=== PATIENT | female | born 1970 | race African-American/Black ===

== ENCOUNTER 2017-06-26 09:57 | Emergency (ER) | payer OTHER | END 2017-06-26 12:25 | disposition home or self-care (01) | LOC: ER 09:57 | DX: J20.9 Acute bronchitis, unspecified (principal); I10 Essential (primary) hypertension | CPT/HCPCS: 71046; 99284 ==

== ENCOUNTER 2018-09-03 10:17 | Emergency (ER) | payer OTHER ==
[~2018-09-03] VITALS: Ht 170.2 cm; Wt 127.0 kg
[~2018-09-03 10:17] MED LIST: AZIT250T6 PO; BENZ100C PO; PRED50TA PO
[2018-09-03 10:35] VITALS: BP 154/90
[2018-09-03] MEDS ORDERED: AMOX875T PO (11:08)
--- NOTE | 2018-09-03 11:09 | PHYS DOC ---
Past Medical History Past Medical History: Hypertension Past Surgical History: Cervical Fusion, Hysterectomy, Tubal ligation, Other Additional Past Surgical Histo: Left foot,NECK Alcohol Use: None Drug Use: None Adult General Chief Complaint Chief Complaint: SORE THROAT HPI HPI Patient is a 48 year old female who presents with a sore throat 5 days. The patient states that it does hurt to swallow but she is able to handle her own secretions. She has been using kujx-oem-wexwbsa or sore throat spray for symptom relief with good result. She has been using nfoz-bdc-tjaolai fever reducers for pain and fever. She denies headache or nausea. She denies earaches. Review of Systems Review of Systems Constitutional: Denies fever or chills [] Eyes: Denies change in visual acuity, redness, or eye pain [] HENT: See history of present illness Respiratory: Denies cough or shortness of breath [] Cardiovascular: No additional information not addressed in HPI [] GI: Denies abdominal pain, nausea, vomiting, bloody stools or diarrhea [] : Denies dysuria or hematuria [] Musculoskeletal: Denies back pain or joint pain [] Integument: Denies rash or skin lesions [] Neurologic: Denies headache, focal weakness or sensory changes [] Endocrine: Denies polyuria or polydipsia [] All other systems were reviewed and found to be within normal limits, except as documented in this note. Allergies Allergies Allergies Coded Allergies Type Severity Reaction Last Updated Verified No Known Drug Allergies 07/11/15 No Physical Exam Physical Exam Constitutional: Well developed, well nourished, no acute distress, non-toxic appearance. [] HENT: Normocephalic, atraumatic, bilateral tympanic membranes normal, pharyngeal erythema with no oral exudates, nose normal. [] Eyes: PERRLA, EOMI, conjunctiva normal, no discharge. [] Neck: Normal range of motion, no tenderness, supple, no stridor. [] Cardiovascular:Heart rate regular rhythm, no murmur [] Lungs & Thorax: Bilateral breath sounds clear to auscultation [] Abdomen: Bowel sounds normal, soft, no tenderness, no masses, no pulsatile masses. [] Neurologic: Alert and oriented X 3, normal motor function, normal sensory function, no focal deficits noted. [] Psychologic: Affect normal, judgement normal, mood normal. [] Current Patient Data Vital Signs Vital Signs Date Time Temp Pulse Resp B/P (MAP) Pulse Ox O2 Delivery O2 Flow Rate FiO2 09/03/18 10:35 98.7 81 20 154/90 (111) 97 Room Air 98.7 EKG EKG [] Radiology/Procedures Radiology/Procedures [] Course & Med Decision Making Course & Med Decision Making Pertinent Labs and Imaging studies reviewed. (See chart for details) [] Dragon Disclaimer Dragon Disclaimer This electronic medical record was generated, in whole or in part, using a voice recognition dictation system. Departure Departure Impression: Primary Impression: Pharyngitis Disposition: HOME, SELF-CARE Condition: STABLE Referrals: TRICIA GARRIDO MD (PCP) Patient Instructions: Viral and Bacterial Pharyngitis Additional Instructions: Take the antibiotic as directed. Increase fluids and rest. You may use ibuprofen or Tylenol for pain. You may continue to use sore throat sprays or lozenges for comfort. Scripts Amoxicillin (AMOXICILLIN) 875 Mg Tablet 1 TAB PO BID for pharyngitis, #20 TAB Prov: GOSIA MENSAH APRN 09/03/18 GOSIA MENSAH APRN Sep 03, 2018 11:09
== END 2018-09-03 11:17 | disposition home or self-care (01) ==
LOC: ER 10:17
DX: J02.9 Acute pharyngitis, unspecified (principal); I10 Essential (primary) hypertension
CPT/HCPCS: 99283

== ENCOUNTER 2018-09-17 16:09 | Emergency (ER) | payer OTHER ==
[~2018-09-17] VITALS: Ht 170.2 cm; Wt 127.0 kg
[~2018-09-17 16:09] MED LIST changes: +AMOX875T PO
[2018-09-17 16:33] VITALS: BP 158/84
--- NOTE | 2018-09-17 16:41 | PHYS DOC ---
Past Medical History Past Medical History: Hypertension (MO TELLEZ APRN) Past Surgical History: Cervical Fusion, Hysterectomy, Tubal ligation, Other Additional Past Surgical Histo: Left foot,NECK (MO TELLEZ APRN) Alcohol Use: None Drug Use: None (MO TELLEZ APRN) Adult General Chief Complaint Chief Complaint: COUGH HPI HPI Patient is a 48 year old AA female who presents to the emergency Department today with complaints of worsening cough and fever today. Patient states she has had a cough for over 3 weeks, she was seen here on August 28, 2018 and was prescribed some amoxicillin. Patient states that the antibiotics did not help her to feel better. She reports nasal congestion, dry cough, sore throat, and swollen lymph nodes in her neck at this time. Patient denies any nausea, vomiting, diarrhea, abdominal pain, ear pain, chest pain, or difficulty breathing. Patient reports that her ribs hurt from coughing. She currently rates her pain as 7 out of 10 on the pain scale she denies any alleviating factors. SHe states that coughing makes her pain worse. (MO TELLEZ APRN) Review of Systems Review of Systems Constitutional: Reports fever today Eyes: Denies changes HENT: See history of present illness Respiratory: See history of present illness Cardiovascular: No additional information not addressed in HPI [] GI: Denies abdominal pain, nausea, vomiting, or diarrhea [] Musculoskeletal: Denies back pain or joint pain [] Integument: Denies rash or skin lesions [] Neurologic: Denies headache (MO TELLEZ APRN) Current Medications Current Medications Current Medications Medications (Trade) Dose Ordered Sig/Bhavya Start Time Stop Time Status Last Admin Dose Admin Ibuprofen (Motrin) 800 mg 1X ONCE 09/17/18 17:00 09/17/18 17:01 DC 09/17/18 17:12 800 MG (FORTINO WHEELER MD) Allergies Allergies Allergies Coded Allergies Type Severity Reaction Last Updated Verified No Known Drug Allergies 07/11/15 No (FORTINO WHEELER MD) Physical Exam Physical Exam Constitutional: Well developed, well nourished, no acute distress, non-toxic appearance. [] HENT: Normocephalic, atraumatic, bilateral external ears normal, bilateral TMs normal, mild erythema of posterior pharynx, oropharynx moist, no oral exudates, nose normal. [] Eyes: conjunctiva normal, no discharge. [] Neck: Normal range of motion, supple, no stridor. [] Cardiovascular:Heart rate regular rhythm, no murmur [] Lungs & Thorax: Bilateral breath sounds clear to auscultation [] Skin: Warm, dry, no erythema, no rash. [] Extremities: No cyanosis, no clubbing, ROM intact, no edema. [] Neurologic: Alert and oriented X 3, no focal deficits noted. [] Psychologic: Affect normal, judgement normal, mood normal. [] (MO TELLEZ APRN) Current Patient Data Vital Signs Vital Signs Date Time Temp Pulse Resp B/P (MAP) Pulse Ox O2 Delivery O2 Flow Rate FiO2 09/17/18 16:33 102.2 99 20 158/84 (108) 98 Room Air 102.2 (FORTINO WHEELER MD) Lab Values Laboratory Tests Test 09/17/18 16:30 09/17/18 17:10 Influenza Type A Antigen Negative (NEGATIVE) Influenza Type B Antigen Negative (NEGATIVE) Group A Streptococcus Rapid Negative (NEGATIVE) (FORTINO WHEELER MD) Lab Values Laboratory Tests Test 09/17/18 16:30 09/17/18 17:10 Influenza Type A Antigen Negative (NEGATIVE) Influenza Type B Antigen Negative (NEGATIVE) Group A Streptococcus Rapid Negative (NEGATIVE) (MO TELLEZ APRN) EKG EKG [] (MO TELLEZ APRN) Radiology/Procedures Radiology/Procedures Influenza testing negative, rapid strep negative[] (MO TELLEZ APRN) Course & Med Decision Making Course & Med Decision Making Pertinent Labs and Imaging studies reviewed. (See chart for details) [] (MO TELLEZ APRN) Course & Med Decision Making Staff Physician Addendum: I was working in the ER during the course of this patient's visit. I was available for consultation as needed, but I was not directly involved in the care of this patient. (FORTINO WHEELER MD) Dragon Disclaimer Dragon Disclaimer This electronic medical record was generated, in whole or in part, using a voice recognition dictation system. (BOGUSLAW,MO D INSTRUCTOR PAINTING) Departure Departure Impression: Primary Impression: URI with cough and congestion Disposition: HOME, SELF-CARE Condition: STABLE Referrals: TRICIA GARRIDO MD (PCP) Patient Instructions: Upper Respiratory Infection, Adult, Ehmg-sr-Ayst Additional Instructions: Fill prescription(s) and use as directed. Recommend use of a Cool mist humidifier in room at bedtime. Alternate Tylenol or ibuprofen as needed for pain /fever. Increase clear fluids. Avoid airway triggers such as smoke, fragrance, dust, and pollen. Follow-up with your primary care doctor symptoms persist, return to the ER if symptoms worsen. Scripts Fluticasone Propionate (Flonase Allergy Relief) 9.9 Ml [place].susp 2 SPRAYS NS DAILY for 30 Days, #1 BOTTLE 0 Refills Prov: MO TELLEZ [employer]INTING 09/17/18 Prednisone (PREDNISONE) 50 Mg Tablet 1 TAB PO DAILY, #5 TAB 0 Refills Prov: MO TELLEZ [employer]ING 09/17/18 Benzonatate (TESSALON PERLE) 100 Mg Capsule 100 MG PO TID PRN for COUGH for 7 Days, #21 CAP 0 Refills Prov: MO TELLEZ [employer]ING 09/17/18 MO TELLEZ [employer]INTING Sep 17, 2018 16:41 FORTINO WHEELER MD Sep 19, 2018 06:17
[2018-09-17] MEDS ORDERED: IBUPROFEN 400 MG TABLET. PO ONE (17:00)
[2018-09-17 17:14] LABS: INFLUENZA A PATIENT NEGATIVE (NEGATIVE); INFLUENZA B PATIENT NEGATIVE (NEGATIVE)
[2018-09-17] MEDS ORDERED: PRED50TA PO (18:01)
[2018-09-17] MEDS ORDERED: FLUT9.9S NS (18:01)
[2018-09-17] MEDS ORDERED: BENZ100C PO (18:01)
== END 2018-09-17 18:17 | disposition home or self-care (01) ==
LOC: ER 16:09
DX: J06.9 Acute upper respiratory infection, unspecified (principal); I10 Essential (primary) hypertension
CPT/HCPCS: 87070; 87804; 87880; 99283

== ENCOUNTER 2019-06-24 09:50 | Emergency (ER) | payer OTHER ==
[~2019-06-24] VITALS: Ht 172.7 cm; Wt 127.0 kg
[~2019-06-24 09:50] MED LIST changes: +FLUT9.9S NS
[2019-06-24 10:25] VITALS: BP 137/74
[2019-06-24] MEDS ORDERED: BENZ100C PO (10:33)
[2019-06-24] MEDS ORDERED: METH4TAB2 PO (10:33)
--- NOTE | 2019-06-24 10:34 | PHYS DOC ---
Past Medical History Past Medical History: Hypertension Past Surgical History: Cervical Fusion, Hysterectomy, Tubal ligation, Other Additional Past Surgical Histo: Left foot,NECK Alcohol Use: None Drug Use: None Adult General Chief Complaint Chief Complaint: COUGH HPI HPI Patient is a 49 year old female who presents with cough this been ongoing for 4 months. The patient states the cough has been getting worse over last cold months. The only medicine she takes is losartan and metformin. The patient states that she has been having a little bit of a runny nose and the cough is worse in the morning. She states she's been using [id number] cough drops. Review of Systems Review of Systems Constitutional: Denies fever or chills [] Eyes: Denies change in visual acuity, redness, or eye pain [] HENT: Reports runny nose. Respiratory: Reports cough but denies shortness of breath [] Cardiovascular: No additional information not addressed in HPI [] GI: Denies abdominal pain, nausea, vomiting, bloody stools or diarrhea [] : Denies dysuria or hematuria [] Musculoskeletal: Denies back pain or joint pain [] Integument: Denies rash or skin lesions [] Neurologic: Denies headache, focal weakness or sensory changes [] Endocrine: Denies polyuria or polydipsia [] Complete systems were reviewed and found to be within normal limits, except as documented in this note. Allergies Allergies Allergies Coded Allergies Type Severity Reaction Last Updated Verified No Known Drug Allergies 07/11/15 No Physical Exam Physical Exam Constitutional: Well developed, well nourished, no acute distress, non-toxic appearance. [] HENT: Normocephalic, atraumatic, bilateral external ears normal, oropharynx moist, no oral exudates, nose normal. [] Eyes: PERRLA, EOMI, conjunctiva normal, no discharge. [] Neck: Normal range of motion, no tenderness, supple, no stridor. [] Cardiovascular:Heart rate regular rhythm, no murmur [] Lungs & Thorax: Bilateral breath sounds clear to auscultation [] Skin: Warm, dry, no erythema, no rash. [] Neurologic: Alert and oriented X 3, normal motor function, normal sensory function, no focal deficits noted. [] Psychologic: Affect normal, judgement normal, mood normal. [] Current Patient Data Vital Signs Vital Signs Date Time Temp Pulse Resp B/P (MAP) Pulse Ox O2 Delivery O2 Flow Rate FiO2 06/24/19 10:25 98.8 82 18 137/74 (95) 97 Room Air 98.8 EKG EKG [] Radiology/Procedures Radiology/Procedures [] Course & Med Decision Making Course & Med Decision Making Pertinent Labs and Imaging studies reviewed. (See chart for details) Discussed with patient that I am not 100% sure of cause of this chronic cough. I encouraged her to visit her primary care provider Dr. Nuno. I suspect it could be caused from post-nasal drip. I asked the patient to trial taking Zyrtec to s ee if improves. I also will write for Tessalon Perles, and will write for a Medrol dose pack. Dragon Disclaimer Dragon Disclaimer This electronic medical record was generated, in whole or in part, using a voice recognition dictation system. Departure Departure Impression: Primary Impression: Cough present for greater than 3 weeks Disposition: 01 HOME, SELF-CARE Condition: STABLE Referrals: AMADEO NUNO MD (PCP) Patient Instructions: Cough, Adult Additional Instructions: Thank you for visiting [facility]. We appreciate you trusting us with your care. If any additional problems come up don't hesitate to return to visit us. Please follow up with your primary care provider so they can plan additional care if needed and know about the problem that you had. If symptoms worsen come back to the Emergency Department. Any concerning symptoms that start such as chest pain, shortness of air, weakness or numbness on one side of the body, running high fevers or any other concerning symptoms return to the ER. Please fill your medications at any pharmacy and follow the prescription instructions. As we discussed please get Zyrtec and take per label instructions. Scripts Benzonatate (TESSALON PERLE) 100 Mg Capsule 100 MG PO TID PRN for COUGH, #21 CAP Prov: HERMILA LIN APRN 06/24/19 Methylprednisolone (MEDROL) 4 Mg Tab.ds.pk 1 PKG PO UD, #1 PKG Prov: HERMILA LIN APRN 06/24/19 HERMILA ILN APRN Jun 24, 2019 10:34
== END 2019-06-24 10:51 | disposition home or self-care (01) ==
LOC: ER 09:50
DX: R05 Cough (principal); R09.89 Other specified symptoms and signs involving the circulatory and respiratory systems; I10 Essential (primary) hypertension; Z90.710 Acquired absence of both cervix and uterus; Z98.51 Tubal ligation status; Z98.890 Other specified postprocedural states
CPT/HCPCS: 99283

== ENCOUNTER 2020-02-22 17:39 | Emergency (ER) | payer OTHER ==
[~2020-02-22] VITALS: Ht 170.2 cm; Wt 128.0 kg
[~2020-02-22 17:39] MED LIST changes: +METH4TAB2 PO
[2020-02-22] MEDS ORDERED: IV NORMAL SALINE 1000ML BAG 1,000 ML IV ONE (18:15)
[2020-02-22] MEDS ORDERED: AZIT250T PO (18:25)
--- NOTE | 2020-02-22 18:30 | PHYS DOC ---
Past Medical History Past Medical History: Hypertension Past Surgical History: Cervical Fusion, Hysterectomy, Tubal ligation, Other Additional Past Surgical Histo: Left foot,NECK Smoking Status: Never Smoker Alcohol Use: None Drug Use: None General Adult EDM: Chief Complaint: NAUSEA/VOMITING/DIARRHA HPI: HPI: Patient is a 50 year old female past medical history hypertension presents with a chief complaint of cough without sputum production sinus pressure fever up to 103 and diarrhea x3 days. Patient denies any associated chest pain or shortness of breath. Last fever was 103 this a.m. Patient states she last took Tylenol at 1100 hrs. Patient states she has some abdominal discomfort when she coughs. Patient states she has also had diarrhea but denies any blood in stool. Patient also complains of taste and smell abnormalities. Review of Systems: Review of Systems: Constitutional: Denies fever or chills. [] Eyes: Denies change in visual acuity. [] HENT: Denies shortness of breath. [Positive cough without sputum production] Cardiovascular: Denies chest pain or edema. [] GI: Denies nausea, vomiting, bloody stools . [Positive diarrhea positive abdominal pain] : Denies dysuria. [] Musculoskeletal: Denies back pain or joint pain. [] Integument: Denies rash. [] Neurologic: Denies headache, focal weakness or sensory changes. [] Endocrine: Denies polyuria or polydipsia. [] Lymphatic: Denies swollen glands. [] Psychiatric: Denies depression or anxiety. [] Heart Score: Risk Factors: Risk Factors: DM, Current or recent (<one month) smoker, HTN, HLP, family history of CAD, obesity. Risk Scores: Score 0 - 3: 2.5% MACE over next 6 weeks - Discharge Home Score 4 - 6: 20.3% MACE over next 6 weeks - Admit for Clinical Observation Score 7 - 10: 72.7% MACE over next 6 weeks - Early Invasive Strategies Current Medications: Current Medications Medications (Trade) Dose Ordered Sig/Bhavya Start Time Stop Time Status Last Admin Dose Admin Acetaminophen (Tylenol) 650 mg 1X ONCE 02/22/20 19:00 02/22/20 19:01 Sodium Chloride 1,000 ml @ 1,000 mls/hr 1X ONCE 02/22/20 18:15 02/22/20 19:14 Allergies: Allergies: Allergies Coded Allergies Type Severity Reaction Last Updated Verified No Known Drug Allergies 07/11/15 No Physical Exam: PE: Constitutional: Well developed, well nourished, no acute distress, non-toxic appearance. [] HENT: Normocephalic, atraumatic, bilateral external ears normal, oropharynx moist, no oral exudates, nose normal. [] Eyes: PERRLA, EOMI, conjunctiva normal, no discharge. [] Neck: Normal range of motion, no tenderness, supple, no stridor. [] Cardiovascular: Tachycardia Lungs & Thorax: Bilateral breath sounds clear to auscultation [] Abdomen: Bowel sounds normal, soft, no tenderness, no masses, no pulsatile masses. [] Skin: Warm, dry, no erythema, no rash. [] Back: No tenderness, no CVA tenderness. [] Extremities: No tenderness, no cyanosis, no clubbing, ROM intact, no edema. [] Neurologic: Alert and oriented X 3, normal motor function, normal sensory function, no focal deficits noted. [] Psychologic: Affect normal, judgement normal, mood normal. [] EKG: EKG: EKG performed at 1804 heart rate [address] elevation no ST depression no acute OR [] Radiology/Procedures: Radiology/Procedures: [] Impression: Findings: Patchy left basilar opacity. No pleural effusion. No pneumothorax. Prior granulomatous disease within the chest. Postop changes lower cervical spine. Impression: 1. Patchy left basilar opacity, concerning for pneumonia. Recommend follow-up to ensure resolution. Course & Med Decision Making: Course & Med Decision Making Pertinent Labs and Imaging studies reviewed. (See chart for details) [] Patient was evaluated initial work-up to include CBC CMP lipase troponin EKG chest x-ray and a COVID. Initial treatment included Tylenol and IV fluids. Treated with rocephin zithromax and potassium. All results reviewed with patient. Vitals at 2145-- Heart rate 98bmp O2 sat 95% on room air. Patient provided with work note. Galileo Disclaimer: Galileo Disclaimer: This electronic medical record was generated, in whole or in part, using a voice recognition dictation system. Departure Departure Impression: Primary Impression: Person under investigation for COVID-19 Additional Impressions: Fever URI with cough and congestion Hypokalemia Disposition: 01 HOME, SELF-CARE Condition: STABLE Patient Instructions: Hypokalemia, Pneumonia, Adult, Upper Respiratory Infection, Adult Scripts Potassium Chloride (POTASSIUM CHLORIDE ) 20 Meq Tablet.er 20 MEQ PO DAILY for SUPPLEMENT for 7 Days, #7 TAB.SR Prov: LAI BRANNON DO 02/22/20 Azithromycin (ZITHROMAX) 250 Mg Tablet 1 PKG PO UD, #6 TAB Prov: LAI BRANNON DO 02/22/20 Justicifation of Admission Dx: Justifications for Admission: Justification of Admission Dx: N/A LAI BRANNON DO Feb 22, 2020 18:30
--- NOTE | 2020-02-22 18:53 | RAD ---
CHEST AP ONLY History: Reason: cough / Spl. Instructions: / History: Comparison: June 26, 2017 Findings: Patchy left basilar opacity. No pleural effusion. No pneumothorax. Prior granulomatous disease within the chest. Postop changes lower cervical spine. Impression: 1. Patchy left basilar opacity, concerning for pneumonia. Recommend follow-up to ensure resolution. Electronically signed by: Jonnathan Aguilar DO (02/22/2020 6:50 PM) [facility]
[2020-02-22] MEDS ORDERED: ACETAMINOPHEN 325 MG TABLET. PO ONE (19:00)
[2020-02-22] MEDS ORDERED: cefTRIAXone IV Push 1 GM VIAL. IVP ONE (19:30)
[2020-02-22 20:06] LABS: BASO % 1 % (0-3); EOS % 0 % (0-3); HEMATOCRIT 36.7 % (36.0-47.0); HEMOGLOBIN 12.4 g/dL (12.0-15.5); LYMPH % 23 % (24-48); MEAN CORPUSCULAR HEMOGLOBIN 30 pg (25-35); MEAN CORPUSCULAR HGB CONC 34 g/dL (31-37); MEAN CORPUSCULAR VOLUME 88 fL (79-100); MONO # 0.3 x10^3/uL (0.0-1.1); MONO % 7 % (0-9); NEUT # 2.9 x10^3/uL (1.8-7.7); NEUT % 69 % (31-73); PLATELET COUNT 164 x10^3/uL (140-400); RED BLOOD COUNT 4.17 x10^6/uL (3.50-5.40); WHITE BLOOD COUNT 4.3 x10^3/uL (4.0-11.0)
[2020-02-22 21:26] VITALS: BP 169/99
[2020-02-22 21:47] LABS: ALBUMIN/GLOBULIN RATIO 0.8 (1.0-1.7); CALCIUM 7.7 mg/dL (8.5-10.1); CREATININE 0.9 mg/dL (0.6-1.0); GFR 80.2; TOTAL BILIRUBIN 0.6 mg/dL (0.2-1.0); TOTAL PROTEIN 6.9 g/dL (6.4-8.2)
[2020-02-22] MEDS ORDERED: POTA20TA4 PO (21:51)
[2020-02-22] MEDS ORDERED: POTASSIUM CHLORIDE 20 MEQ TABLET.ER. PO ONE (22:00)
--- NOTE | 2020-02-23 10:19 | EKG ---
[facility] [address] [place] [address] Test Date: 2020-02-22 Test Time: 18:04:25 Pat Name: CLARE CHAVARRIA Department: Room: Gender: F Buncher Hand: : 1970 Requested By: LAI BRANNON Order Number: [id number] Reading MD: Measurements Intervals [place] Rate: 115 P: 32 [place]: 120 QRS: -6 QRSD: 94 T: 5 QT: 318 QTc: 442 Interpretive Statements SINUS TACHYCARDIA LEFT ATRIAL ABNORMALITY LEFTWARD AXIS ABNORMAL ECG RI6.02 No previous ECG available for comparison
--- NOTE | 2020-02-26 08:56 | EKG ---
[facility] [address] [place] [address] Test Date: 2020-02-22 Test Time: 18:04:25 Pat Name: CLARE CHAVARRIA Department: Room: Gender: F Education Rep: : 1970 Requested By: LAI BRANNON Order Number: [id number] Reading MD: Measurements Intervals [place] Rate: 115 P: 32 [place]: 120 QRS: -6 QRSD: 94 T: 5 QT: 318 QTc: 442 Interpretive Statements SINUS TACHYCARDIA LEFT ATRIAL ABNORMALITY LEFTWARD AXIS ABNORMAL ECG RI6.02 No previous ECG available for comparison MTDD
== END 2020-02-22 22:00 | disposition home or self-care (01) ==
LOC: ER 17:39
DX: U07.1 COVID-19 (principal); J06.9 Acute upper respiratory infection, unspecified; R09.81 Nasal congestion; R05 Cough; R50.9 Fever, unspecified; E87.6 Hypokalemia; I10 Essential (primary) hypertension; Z90.710 Acquired absence of both cervix and uterus; Z98.51 Tubal ligation status; Z98.890 Other specified postprocedural states
CPT/HCPCS: 36415; 71045; 80053; 83690; 84484; 85025; 93005; 96361; 96374; 99285; J0696; J7030; U0003

== ENCOUNTER 2020-06-10 16:12 | Emergency (ER) | payer OTHER ==
[~2020-06-10] VITALS: Ht 167.6 cm; Wt 138.6 kg
[~2020-06-10 16:12] MED LIST changes: +AZIT250T PO; +POTA20TA4 PO
[2020-06-10 17:16] VITALS: BP 184/95
[2020-06-10] MEDS ORDERED: NAPROXEN 500 MG TABLET PO STA (17:22)
[2020-06-10] MEDS ORDERED: HYDROcodone/APAP 5/325MG 1 TAB TABLET PO ONE (17:30)
[2020-06-10] MEDS ORDERED: predniSONE 10 MG TABLET PO ONE (17:30)
[2020-06-10] MEDS ORDERED: CYCLOBENZAPRINE 10 MG TABLET. PO ONE (17:30)
--- NOTE | 2020-06-10 17:44 | RAD ---
Right shoulder 3 views. HISTORY: Pain right shoulder 3 views were taken of the right shoulder. There is not evidence of a fracture or dislocation or acute osseous abnormality. IMPRESSION: 1. No fracture or dislocation or acute osseous abnormality in the right shoulder. Electronically signed by: Berto Alcala MD (06/10/2020 5:42 PM) [id number]
[2020-06-10] MEDS ORDERED: METH4TAB2 PO (18:07)
[2020-06-10] MEDS ORDERED: HYDR-3164 PO (18:07)
[2020-06-10] MEDS ORDERED: GABA-585 PO (18:07)
[2020-06-10] MEDS ORDERED: CYCL10TA2 PO (18:07)
--- NOTE | 2020-06-10 18:07 | PHYS DOC ---
Past Medical History Past Medical History: Hypertension Past Surgical History: Cervical Fusion, Hysterectomy, Tubal ligation, Other Additional Past Surgical Histo: Left foot,NECK Smoking Status: Never Smoker Alcohol Use: None Drug Use: None General Adult EDM: Chief Complaint: SHOUDLER HPI: HPI: Patient is a 50 year old female with history of hypertension who presents to the ED today complaining of mild intermittent right shoulder pain specifically on the posterior aspect of the shoulder that began 5 days ago. Patient states she thought she slept wrong but the pain seems to keep going. She denies anything specifically exacerbating or relieving the pain. She describes the pain as sharp. She states she has tried [id number] pain patches as well as NSAIDs with no relief. Review of Systems: Review of Systems: Constitutional: Denies fever or chills. [] Respiratory: Denies cough or shortness of breath. [] Cardiovascular: Denies chest pain or edema. [] : Denies dysuria. [] Musculoskeletal: Reports right shoulder pain Integument: Denies rash. [] Neurologic: Denies headache, focal weakness or sensory changes. [] Psychiatric: Denies depression or anxiety. [] Heart Score: Risk Factors: Risk Factors: DM, Current or recent (<one month) smoker, HTN, HLP, family history of CAD, obesity. Risk Scores: Score 0 - 3: 2.5% MACE over next 6 weeks - Discharge Home Score 4 - 6: 20.3% MACE over next 6 weeks - Admit for Clinical Observation Score 7 - 10: 72.7% MACE over next 6 weeks - Early Invasive Strategies Current Medications: Current Medications Medications (Trade) Dose Ordered Sig/[facility] Start Time Stop Time Status Last Admin Dose Admin Acetaminophen/ Hydrocodone Bitart (Lortab 5/325) 2 tab 1X ONCE 06/10/20 17:30 06/10/20 17:31 DC 06/10/20 17:44 2 TAB Cyclobenzaprine HCl (Flexeril) 10 mg 1X ONCE 06/10/20 17:30 06/10/20 17:31 DC 06/10/20 17:44 10 MG Naproxen (Naprosyn) 500 mg 1X STAT 06/10/20 17:22 06/10/20 17:25 DC 06/10/20 17:43 500 MG Prednisone (Prednisone) 50 mg 1X ONCE 06/10/20 17:30 06/10/20 17:31 DC 06/10/20 17:44 50 MG Allergies: Allergies: Allergies Coded Allergies Type Severity Reaction Last Updated Verified No Known Drug Allergies 07/11/15 No Physical Exam: PE: Constitutional: Well developed, well nourished, no acute distress, non-toxic appearance. [] Cardiovascular:Heart rate regular rhythm, no murmur [] Lungs & Thorax: Bilateral breath sounds clear to auscultation [] Abdomen: Bowel sounds normal, soft, no tenderness, no masses, no pulsatile masses. [] Skin: Warm, dry, no erythema, no rash. [] Back: No tenderness, no CVA tenderness. [] Extremities: Right upper extremity with no obvious deformity. Point tenderness on posterior right shoulder,, no cyanosis, no clubbing, ROM intact, no edema. Neurovascular exam is intact to the right upper extremity. +2 right radial pulse. Neurologic: Alert and oriented X 3, normal motor function, normal sensory function, no focal deficits noted. [] Psychologic: Affect normal, judgement normal, mood normal. [] Current Patient Data: Vital Signs: Vital Signs Date Time Temp Pulse Resp B/P (MAP) Pulse Ox O2 Delivery O2 Flow Rate FiO2 06/10/20 17:16 98.0 90 20 184/95 (124) 99 Room Air 98.0 EKG: EK interpreted by Dr. Potts sinus rhythm HR 83 no STEMI[] Radiology/Procedures: Radiology/Procedures: []PROCEDURE: SHOULDER 2+V RIGHT Right shoulder 3 views. HISTORY: Pain right shoulder 3 views were taken of the right shoulder. There is not evidence of a fracture or dislocation or acute osseous abnormality. IMPRESSION: 1. No fracture or dislocation or acute osseous abnormality in the right shoulder. Electronically signed by: Berto Alcala MD (06/10/2020 5:42 PM) [id number] DICTATED and SIGNED BY: BERTO ALCALA MD DATE: 06/10/20 [id number] 0 Course & Med Decision Making: Course & Med Decision Making Pertinent Labs and Imaging studies reviewed. (See chart for details) This is a 50-year-old female patient presenting to the ED today with right shoulder pain for 5 days. No known injury. Right shoulder x-rays are negative for any acute findings. Discharge to home. Follow-up with orthopedic doctor or PCP in 1 week if pain persist. EKG was also done to rule out any cardiac origin, EKG is negative. Dragon Disclaimer: Dragon Disclaimer: This electronic medical record was generated, in whole or in part, using a voice recognition dictation system. Departure Departure Impression: Primary Impression: Right shoulder pain Qualified Codes: M25.511 - Pain in right shoulder Disposition: 01 DC HOME SELF CARE/HOMELESS Condition: STABLE Referrals: AMADEO NUNO MD (PCP) ELVIRA ELENA II, MD Follow up with your doctor in one week Patient Instructions: Shoulder Pain, [id number] Additional Instructions: You were seen for right shoulder pain, your right shoulder x-rays are negative for any acute findings. Continue to rotate/move the shoulder 10 times every hour while awake. Take the prescribed medications as ordered. Follow-up with your own doctor or the provided orthopedic doctor in 1 week if pain persist Scripts Gabapentin (GABAPENTIN ) 100 Mg Capsule 1 MG PO TID for NEUROGENIC PAIN, #30 CAP Prov: SOPHIA ACOSTA APRN 06/10/20 Cyclobenzaprine Hcl (CYCLOBENZAPRINE HCL) 10 Mg Tablet 1 TAB PO TID, #30 TAB Prov: SOPHIA ACOSTA APRN 06/10/20 Hydrocodone/Apap 5-325 (NORCO 5-325 TABLET) 1 Each Tablet 1 TAB PO Q6HRS, #20 TAB Prov: SOPHIA ACOSTA APRN 06/10/20 Methylprednisolone (MEDROL) 4 Mg Tab.ds.pk 1 PKG PO UD, #1 PKG Prov: SOPHIA ACOSTA APRN 06/10/20 SOPHIA ACOSTA APRN Jun 10, 2020 18:07
== END 2020-06-10 18:11 | disposition home or self-care (01) ==
LOC: ER 16:12
DX: M25.511 Pain in right shoulder (principal); I10 Essential (primary) hypertension; Z90.89 Acquired absence of other organs; Z98.51 Tubal ligation status; Z98.890 Other specified postprocedural states
CPT/HCPCS: 73030; 93005; 99284; J7512

== ENCOUNTER 2021-10-01 16:30 | Emergency (ER) | payer OTHER ==
[~2021-10-01] VITALS: Ht 170.2 cm; Wt 150.0 kg
[~2021-10-01 16:30] MED LIST changes: +CYCL10TA19 PO; +GABA-585 PO; +HYDR-3164 PO
[2021-10-01] MEDS ORDERED: KETOROLAC 30 MG/ML VIAL. IM ONE (18:30)
[2021-10-01] MEDS ORDERED: ORPHENADRINE CITRATE 60 MG/2 ML VIAL. IM ONE (18:30)
--- NOTE | 2021-10-01 18:59 | RAD ---
Exam: Right foot 3 views INDICATION: Pain in foot TECHNIQUE: Frontal, lateral and oblique views of the right foot Comparisons: None FINDINGS: Bone mineralization is normal. No acute or healed fractures. Soft tissues are unremarkable. Degenerat elodia change at the midfoot. IMPRESSION: No acute osseous abnormality. Electronically signed by: Sanjana Edouard MD (10/01/2021 6:57 PM) [facility]ANDER
--- NOTE | 2021-10-01 19:01 | RAD ---
Exam: Right knee 3 views INDICATION: Pain in left foot TECHNIQUE: Frontal, lateral and oblique views of the right foot Comparisons: None FINDINGS: Bone mineralization is normal. No acute or healed fractures. Soft tissues are unremarkable. Mild tric ompartmental structures are changes at the right knee. IMPRESSION: No acute osseous abnormality Electronically signed by: Sanjana Edouard MD (10/01/2021 6:59 PM) [facility]I
[2021-10-01] MEDS ORDERED: CAPS42.514 TP (19:23)
[2021-10-01] MEDS ORDERED: ORPH100T PO (19:23)
[2021-10-01] MEDS ORDERED: DICL20GE TP (19:23)
--- NOTE | 2021-10-01 19:23 | PHYS DOC ---
Past Medical History Past Medical History: Hypertension Past Surgical History: Other Additional Past Surgical Histo: LEFT FOOT Smoking Status: Never Smoker Alcohol Use: None Drug Use: None General Adult EDM: Chief Complaint: LOWER EXT PAIN HPI: HPI: Patient is a 51 year old female with past medical history of HTN who presents with right foot pain radiating to her right knee. Patient states her pain began at the low lateral aspect of the right foot a little over 2 weeks ago. She was seen at urgent care and prescribed naproxen and Flexeril for the pain. Patient reports these medications did help temporarily, but now the pain is worse and radiates to across the bottom of her foot to the medial side as well as to her right knee. She does not like that the Flexeril that she was prescribed makes her extremely drowsy, leading her to sleep all day. Patient had similar pain on her left foot in the past, for which she received surgical treatment for plantar fasciitis. She has been using arch support soft compress, which has also improved her symptoms. Patient denies injury or trauma, paresthesias, erythema, wounds. Review of Systems: Review of Systems: Constitutional: Denies fever, chills or generalized weakness Eyes: Denies change in visual acuity, visual field deficits or discharge HENT: Denies ear pain, nasal congestion or sore throat Respiratory: Denies cough or shortness of breath Cardiovascular: Denies chest pain, palpitations or edema GI: Denies abdominal pain, nausea, vomiting, bloody stools or diarrhea : Denies dysuria or hematuria Musculoskeletal: See HPI Integument: Denies rash or other skin lesion Neurologic: Denies headache, focal weakness or sensory changes Heart Score: C/O Chest Pain: No Current Medications: Current Medications Medications (Trade) Dose Ordered Sig/[facility] Start Time Stop Time Status Last Admin Dose Admin Ketorolac Tromethamine (Toradol 30mg Vial) 30 mg 1X ONCE 10/01/21 18:30 10/01/21 18:31 DC 10/01/21 18:43 30 MG Orphenadrine Citrate (Norflex) 60 mg 1X ONCE 10/01/21 18:30 10/01/21 18:31 DC 10/01/21 18:43 60 MG Allergies: Allergies: Allergies Coded Allergies Type Severity Reaction Last Updated Verified No Known Drug Allergies 07/11/15 No Physical Exam: PE: Constitutional: Obese, no acute distress, non-toxic appearance. HENT: Normocephalic, atraumatic, bilateral external ears normal, nose normal. Eyes: EOMI, conjunctiva normal, no discharge. Skin: Warm, dry, no erythema, no rash. Back: No step-off, no tenderness. Extremities: Mild plantar midfoot tenderness appreciated on right side. Extremities otherwise tenderness, no cyanosis, no clubbing, ROM intact, no edema Neurologic: Alert and oriented x4, normal motor function, normal sensory function, no focal deficits noted. Current Patient Data: Vital Signs: Vital Signs Date Time Temp Pulse Resp B/P (MAP) Pulse Ox O2 Delivery O2 Flow Rate FiO2 10/01/21 19:34 74 20 190/110 (136) 98 Room Air 10/01/21 17:53 98.0 84 20 180/113 (135) 98 98.0 Radiology/Procedures: Radiology/Procedures: PROCEDURE: KNEE RIGHT 3V Exam: Right knee 3 views INDICATION: Pain in left foot TECHNIQUE: Frontal, lateral and oblique views of the right foot Comparisons: None FINDINGS: Bone mineralization is normal. No acute or healed fractures. Soft tissues are unremarkable. Mild tricompartmental structures are changes at the right knee. IMPRESSION: No acute osseous abnormality Electronically signed by: Sanjana Edouard MD (10/01/2021 6:59 PM) [facility] PROCEDURE: FOOT RIGHT 3V Exam: Right foot 3 views INDICATION: Pain in foot TECHNIQUE: Frontal, lateral and oblique views of the right foot Comparisons: None FINDINGS: Bone mineralization is normal. No acute or healed fractures. Soft tissues are unremarkable. Degenerative change at the midfoot. IMPRESSION: No acute osseous abnormality. Electronically signed by: Sanjana Edouard MD (10/01/2021 6:57 PM) [facility] Course & Med Decision Making: Course & Med Decision Making Pertinent Labs and Imaging studies reviewed. (See chart for details) Patient is a 51-year-old female who presents with right foot pain radiating to her right knee. Plain films are obtained. Patient was given Toradol and Norflex here in the department. On reevaluation, patient states that her pain is significantly improved and is now dull. She states she does not feel as drowsy with Norflex as she does with Flexeril. Improved patient of arthritic changes found on plain films. Discussed pharmacologic as well as nonpharmacologic treatment measures. She is provided with follow-up contact information for Dr. Celis, podiatry. I advised that she keep a blood pressure log to bring with her to her next PCP appointme nt, as her blood pressure is elevated here today. Return precautions were provided. Patient understands and is agreeable to discharge plan. Dragon Disclaimer: Dragon Disclaimer: This electronic medical record was generated, in whole or in part, using a voice recognition dictation system. Departure Departure Impression: Primary Impression: Arthralgia of right foot Additional Impression: Benign essential hypertension Disposition: HOME / SELF CARE / HOMELESS Condition: IMPROVED Referrals: AMADEO NUNO MD (PCP) JEANIE CELIS DPM Patient Instructions: Arthralgia, [id number] Additional Instructions: Please contact Dr. Celis, information noted above, for further evaluation and management of arthritic foot pain. EMERGENCY DEPARTMENT GENERAL DISCHARGE INSTRUCTIONS Thank you for coming to [facility] Emergency Department (ED) today and trusting us with you care. We trust that you had a positive experience in our Emergency Department. If you wish to speak to the department management, you may call the director at . YOUR FOLLOW UP INSTRUCTIONS ARE FOLLOWS: 1. Follow up with your primary care doctor. If you do not have a primary doctor, please ask for a resource list of physicians or clinics that may be able to assist you with follow up care. 2. The emergency provider has interpreted your imaging studies, if any were ordered. The radiology medical management specialist also reviewed them. If there is a change in the findings, you will be notified in 48 hours when at all possible. 3. If a lab test or culture has been done, your results will be reviewed and you will be notified if you need a change in treatment. 4. Follow instructions verbalized to you and refer to the printouts if needed. ADDITIONAL INSTRUCTIONS AND INFORMATION: 1. Your care today has been supervised by a physician who is specially trained in emergency care. Many problems require more than one evaluation for a complete diagnosis and treatment. We recommend that you schedule your follow up appointment as recommended to ensure complete treatment of you illness or injury. If you are unable to obtain follow up care and continue to have a problem, or if your condition worsens, we recommend that you return to the ED. 2. We are not able to safely determine your condition over the phone nor are we able to give sound medical advice over the phone. For these safety reasons, if you call for medical advice we will ask you to come to the ED for further evaluation. 3. If you have any questions regarding these discharge instructions please call the ED at . SAFETY INFORMATION: In the interest of safety, wellness, and injury prevention; we encourage you to wear your seat belt, if you smoke; quite smoking, and we encourage family to use a protective helmet for bicycling and other sporting events that present an increased risk for head injury. IF YOUR SYMPTOMS WORSEN OR NEW SYMPTOMS DEVELOP, OR YOU HAVE CONCERNS ABOUT YOUR CONDITION; OR IF YOUR CONDITION WORSENS WHILE YOU ARE WAITING FOR YOUR FOLLOW UP APPOINTMENT; EITHER CONTACT YOUR PRIMARY CARE DOCTOR, THE PHYSICIAN WHOSE NAME AND NUMBER YOU WERE GIVEN, OR RETURN TO THE ED IMMEDIATELY. Scripts Diclofenac Sodium (Voltaren Arthritis Pain) 20 Gm Gel..gram. 1 JESÚS TP DAILY, #1 BOTTLE Prov: QUINCY RINCON 10/01/21 Orphenadrine Citrate (ORPHENADRINE CITRATE) 100 Mg Tablet.er 1 TAB PO Q12HR, #20 TAB 0 Refills Prov: QUINCY RINCON 10/01/21 Capsaicin (CAPSAICIN) 42.5 Gm Cream..g. 1 JESÚS TP TID, #1 BOTTLE 0 Refills Prov: QUINCY RINCON 10/01/21 QUINCY RINCON Oct 01, 2021 19:23
[2021-10-01 19:34] VITALS: BP 190/110
== END 2021-10-01 19:35 | disposition home or self-care (01) ==
LOC: ER 16:30
DX: M25.571 Pain in right ankle and joints of right foot (principal); I10 Essential (primary) hypertension
CPT/HCPCS: 73562; 73630; 96372; 99284; J1885; J2360